=== PATIENT | female | born 1940 | race American Indian/Alaskan Native ===

== ENCOUNTER 2017-07-11 08:25 | Outpatient (CLI) | payer MEDICARE ==
--- NOTE | 2017-07-11 09:26 | XRay Report ---
XRAY BILATERAL HIPS AND AP PELVIS THREE VIEWS: 07/11/17 CLINICAL: Bilateral hip pain FINDINGS: Right: No fracture or dislocation. Moderate osteoarthritis with joint space narrowing and osteophytes. Normal soft tissues. Left: No fracture or dislocation. Mild/moderate osteoarthritis with joint space narrowing and small osteophytes.Normal soft tissues. The pelvic bones are intact.Bilateral SI joint sclerosis with no erosions. Status post lower lumbar fusion with posterior rods at L4-S1. IMPRESSION: Osteoarthritis, worse on the right than the left.
== END 2017-07-11 08:26 | disposition home or self-care (01) ==
LOC: SPVIMAG 08:25
PROVIDERS: ATTEND Orthopaedic Surgery Sports Medicine
DX: M16.0 Bilateral primary osteoarthritis of hip (principal); M43.27 Fusion of spine, lumbosacral region
CPT/HCPCS: 73521

== ENCOUNTER 2017-09-03 09:49 | Outpatient (CLI) | payer MEDICARE ==
--- NOTE | 2017-09-03 19:52 | XRay Report ---
FINAL REPORT EXAM: XR SPINE CERVICAL 6+V HISTORY: CERVICAL SPINAL STENOSIS TECHNIQUE: Cervical spine four views PRIORS: None. FINDINGS: There is been fusion and appearing corpectomy C5-C6 C7 and. Remaining levels demonstrate normal height and alignment. The surgical hardware is intact. Facet joints demonstrate normal alignment. The spinous processes are intact. There is disc space narrowing at C3-C4 IMPRESSION: Status post fusion C5-C6 C7 Degenerative disc changes at C3-C4
== END 2017-09-03 09:50 | disposition home or self-care (01) ==
LOC: SPVIMAG 09:49
PROVIDERS: ATTEND Physical Medicine & Rehabilitation
DX: M48.02 Spinal stenosis, cervical region (principal); M47.892 Other spondylosis, cervical region; R26.89 Other abnormalities of gait and mobility; Z98.1 Arthrodesis status
CPT/HCPCS: 72052